=== PATIENT | male | born 1970 | race Caucasian/White ===

== ENCOUNTER 2017-03-31 12:48 | Emergency (ER) | payer SELFPAY ==
[2017-03-31 12:55] VITALS: BP 181/106
--- NOTE | 2017-03-31 13:52 | UC ---
Mónica Turcios Matthew, scribed for Shruthi Gallegos MD on 03/31/17 at 1316 . General HPI - HPI Summary HPI Summary: A 46 y/o male presents to with slurred speech and left sided facial droop since 20 minutes ago (12:20 per girlfriend, 12:28 per pt) that lasted for one minute and has since resolved. He first noticed the deficits when he was having difficulty focusing while on the phone with his girlfriend and began noticing that he was slurring his words. He then states that his face began to droop on the left side and he had left sided weakness in the arm and leg. Associated symptoms numbness of the left arm. He denies chest pain and SOB. He had a headache all morning, which resolved after taking 4 ibuprofen at 10:10 this morning. No FHx of CVA. Hx of GERD. He has no Hx of HTN. He states that he feels better currently. - History of Current Complaint Chief Complaint: UCGeneralIllness Stated Complaint: POSSIBLE STROKE Hx Obtained From: Patient Onset/Duration: Sudden Onset, Lasting Minutes - 1, Resolved Timing: Intermittent Episodes Lasting: - 1 minute x 1 episode Onset Severity: Moderate Current Severity: None Associated Signs & Symptoms: Positive: Headache - since resolved, Other - left sided facial droop, left sided arm and leg weakness - both since resolved; slurred speech - resolved; Numbness of the left arm - since resolved. Negative : Chest Pain, SOB - Allergy/Home Medications Allergies/Adverse Reactions: Allergies Allergy/AdvReac Type Severity Reaction Status Date / Time Sulfa Antibiotics Allergy Severe Anaphylatic Verified 03/31/17 12:54 Shock Home Medications: Home Medications Ibuprofen [Advil] 4 tab PO Q8HR PRN 03/31/17 [History Confirmed 03/31/17] Omeprazole [Prilosec] 1 tab PO DAILY 03/31/17 [History Confirmed 03/31/17] PMH/Surg Hx/FS Hx/Imm Hx Endocrine History Of: Denies: Diabetes Cardiovascular History Of: Denies: Hypertension GI/ History Of: Reports: Gastroesophageal Reflux Denies: Kidney Stones - Surgical History Surgical History: Yes Surgery Procedure, Year, and Place: Inguinal hernia right. Right knee scope - Family History Known Family History: Positive: Hypertension, Diabetes Family History: No FHx of CVA. - Social History Lives: With Family Alcohol Use: Weekly Alcohol Amount: 2-3 drinks per week- 2 drinks last night Substance Use Type: None Smoking Status (MU): Former Smoker Have You Smoked in the Last Year: No When Did the Patient Quit Smoking/Using Tobacco: 2012 Review of Systems Constitutional: Negative Skin: Negative Eyes: Negative ENT: Negative Respiratory: Negative Cardiovascular: Negative Gastrointestinal: Negative Genitourinary: Negative Motor: Negative Neurovascular: Negative Musculoskeletal: Negative Neurological: Headache - since resolved, Numbness - left arm and leg - since resolved, Other - left sided facial droop, left sided arm and leg weakness - both since resolved; slurred speech - resolved Psychological: Negative All Other Systems Reviewed And Are Negative: Yes Physical Exam Triage Information Reviewed: Yes Appearance: Well-Appearing, No Pain Distress, Obese Vital Signs: Initial Vital Signs Temp 98.5 F 03/31/17 12:50 Pulse 103 03/31/17 12:50 Resp 16 03/31/17 12:50 BP 181/106 03/31/17 12:50 Pulse Ox 96 03/31/17 12:50 elevated BP noted Vital Signs Reviewed: Yes Eyes: Positive: Conjunctiva Clear ENT: Positive: Normal ENT inspection Neck: Positive: Supple, Other: - no bruit Respiratory: Positive: Chest non-tender, Lungs clear, Normal breath sounds, No respiratory distress Cardiovascular: Positive: RRR, No Murmur, Pulses Normal, Brisk Capillary Refill Abdomen Description: Positive: Nontender, Soft Musculoskeletal: Positive: Strength Intact, ROM Intact Neurological Exam: Normal, Other - A&O x3 CN II-XII intact Motor function 5/5 Sensations intact Gait WNL Psychological Exam: Normal Psychological: Positive: Age Appropriate Behavior Skin Exam: Normal Diagnostics - EKG Cardiac Rate: NL - 86 bpm Cardiac Rhythm: Sinus: Normal - Normal AV IV conduction time; Left [place] Deviation -20; Q Wave in III and aVF ; No Acute Changes; No Previous EKG Course/Dx - Course Course Of Treatment: high blood pressure noted. Pt treated with highest priority upon stating his symptoms, code genao urgency. NIH stroke scale zero upon triage. Pt with HTN now. Will transfer to [facility] by ambulance for eval for TIA vs CVA vs complex migraine. - Differential Dx - Multi-Symptom Differential Diagnoses: CVA, Metabolic Abnormality, Other - TIA, complex migraine Provider Diagnoses: TIA - Physician Notifications Discussed Patient Care With: Ann Tan (ED PA) at 12:38 -- Notified of patient' s history and accepts transfer of the patient. Instructed by Provider To: MD Will See In ED Discharge - Discharge Plan Condition: Stable Disposition: TRANS HIGHER LVL OF CARE FAC Discharge Disposition Comment: The patient needs further evaluation in the ED. Referrals: No Primary Care Phys,NOPCP [Primary Care Provider] - NIH Scale - NIH Scale Level of Consciousness: Alert/Keenly Responsive Ask Patient the Month and His/Her Age: Both Correct Ask Pt to Open/Close Eyes and Logistics Planning Engineer/Release Non-Paretic Hand: Both Correctly Best Gaze (Only Horizontal Eye Movement): Normal Visual Field Testing: No Visual Loss Facial Paresis-Pt to Smile & Close Eyes or Grimace Symmetry: Normal/Symmetrical Motor Function - Right Arm: No Drift-Holds 10 Seconds Motor Function - Left Arm: No Drift-Holds 10 Seconds Motor Function - Right Leg: No Drift-Holds 10 Seconds Motor Function - Left Leg: No Drift-Holds 10 Seconds Limb Ataxia-Must be out of Proportion to Weakness Present: Absent Sensory (Use Pinprick to Test Arms/Legs/Trunk/Face): Normal Best Language (Describe Picture, Name Items): No Aphasia Dysarthria (Read Several Words): Normal Extinction and Inattention: No Abnormality Total Score: 0 The documentation as recorded by the Mónica sewell Matthew accurately reflects the service I personally performed and the decisions made by , Shruthi Gallegos MD.
== END 2017-03-31 13:15 | disposition short-term general hospital (02) ==
LOC: UCEAST 12:48
DX: G45.9 Transient cerebral ischemic attack, unspecified (principal); R53.1 Weakness; R51 Headache; K21.9 Gastro-esophageal reflux disease without esophagitis; E66.9 Obesity, unspecified; Z88.2 Allergy status to sulfonamides; Z87.891 Personal history of nicotine dependence
CPT/HCPCS: 93005; 99213; G0463

== ENCOUNTER 2017-03-31 13:29 | Observation (INO) | payer SELFPAY ==
[2017-03-31] MEDS ORDERED: NS 0.9% 1000 ML* 1,000 ML IV ONE (13:55)
[2017-03-31 14:08] LABS: Hematocrit 50 % (42-52); Hemoglobin 17.1 g/dl (14.0-18.0); Mean Corpuscular HGB Conc 34 g/dl (31-36); Mean Corpuscular Hemoglobin 31 pg (27-31); Mean Corpuscular Volume 90 fL (80-94); Mean Platelet Volume 9 um3 (7.4-10.4); Red Blood Count 5.58 10^6/ul (4.0-5.4); Red Cell Distribution Width 13 % (10.5-15); White Blood Count 8.9 10^3/ul (3.5-10.8)
[2017-03-31 14:21] LABS: Albumin 4.3 g/dL (3.2-5.2); BUN/Creatinine Ratio 20.7 (8-20); Calcium 9.7 mg/dL (8.6-10.3); EGFR African American 113.4 (>60); EGFR Non-African American 88.2 (>60); Globulin 2.7 g/dL (2-4); Potassium 3.7 mmol/L (3.5-5.0); Total Bilirubin 0.6 mg/dL (0.2-1.0)
[2017-03-31] MEDS ORDERED: Atorvastatin* 20 MG TAB PO ONE (14:31)
[2017-03-31] MEDS ORDERED: Aspirin TAB* 325 MG PO ONE (14:31)
[2017-03-31] MEDS ORDERED: Iodixanol* (CONTRAST) 320 MG/ML 100 ML SDV IV ONE (14:37)
--- NOTE | 2017-03-31 14:50 | RAD ---
Indication: Slurred speech, left-sided weakness. CT of the brain was performed without IV contrast. Ventricular structures are midline. No midline shift is noted. The extraction spaces are unremarkable. There is no evidence of intracranial mass or hemorrhage. No other high or low density lesions are identified. IMPRESSION: No intracranial mass or hemorrhage is noted. Findings discussed with Dr. Sauceda at 1446 hours.
--- NOTE | 2017-03-31 15:19 | RAD ---
INDICATION: Left-sided weakness with slurred speech with subsequent resolution of symptoms. COMPARISON: CT brain same date TECHNIQUE: Axial source images were acquired with coronal and sagittal reconstructions. CT angiographic technique was utilized with injection of 80 mL Visipaque 320. FINDINGS: Aortic arch: There are no CT angiogram abnormalities of the arch or the great vessels arising from the arch. Right carotid: The internal carotid artery, carotid bifurcation, extracranial portions of the internal carotid artery, carotid artery at the skull base, carotid siphon, and carotid termination appear normal. Left carotid:The internal carotid artery, carotid bifurcation, extracranial portions of the internal carotid artery, carotid artery at the skull base, carotid siphon, and carotid termination appear normal. Right middle and anterior cerebral arteries: There are no CT angiographic abnormalities of the middle or anterior cerebral arteries. Left middle and anterior cerebral arteries: There are no CT angiographic abnormalities of the middle or anterior cerebral arteries Right vertebral: The CT angiographic appearance of the vertebral artery is normal. Left vertebral: The CT angiographic appearance of the vertebral artery is normal. The left vertebral artery is dominant Basilar artery: The basilar artery and basilar tip appear normal. Posterior cerebral arteries: The distal distribution of the right and left posterior cerebral arteries is normal. [place]: The CT angiographic appearance of the [place] is normal. Source images show no evidence of mass or adenopathy within the neck. There are no focal parenchymal abnormalities or abnormal areas of enhancement. IMPRESSION: NO SPECIFIC CT ANGIOGRAPHIC ABNORMALITIES. CPT II Codes: 3100F [facility]
--- NOTE | 2017-03-31 15:21 | RAD ---
INDICATION: TIA COMPARISON: None TECHNIQUE: An AP portable view obtained at 1445 hours is submitted. FINDINGS: Bones/Soft Tissues: There are no acute bony findings. Cardiomediastinal: The cardiomediastinal silhouette is normal. Lungs: There are no infiltrates. Pleura: There are no pleural effusions. Other: None IMPRESSION: Normal chest.
[2017-03-31 15:35] LABS: HDL Cholesterol 46.4 mg/dL
[2017-03-31] MEDS ORDERED: Acetaminophen TAB* 325 MG PO PRN (15:49)
[2017-03-31] MEDS ORDERED: NS 0.9% 1000 ML* 1,000 ML IV SCH (16:00)
--- NOTE | 2017-03-31 17:39 | ED ---
Maximo Turcios Benjamin, scribed for Umer Sauceda MD on 03/31/17 at 1354 . Neurological HPI - HPI Summary HPI Summary: 46yo male c/o a possible TIA. Pt was on the phone with her , and suddenly noticed tingling and aphasia. Pt also reports left sided weakness. Per , time of onset was 1220, which lasted about 2-3 minutes. Pt states that he had a MEYER all throughout yesterday prior to todays episode. Pt also had about 7 episodes of diarrhea. Denies any visual changes. No Hx of CAD, HTN, DM, TIA/ CVA. Pt is left handed. - History of Current Complaint Chief Complaint: EDNeurologicalDeficit Stated Complaint: WEAKNESS Time Seen by Provider: 03/31/17 13:37 Hx Obtained From: Patient, Family/Counter Intelligence - Onset/Duration: Sudden Onset - 1220 today, Started minutes ago - 2-3 minutes, Resolved Onset Severity: Mild Current Severity: None Neurological Deficit Location: LUE, LLE Headache Location: Diffuse (Left) Pain Intensity: 0 Pain Scale Used: 0-10 Numeric Character: Numbness/Tingling, Motor Weakness - left sided, Impaired Speech - Allergy/Home Medications Allergies/Adverse Reactions: Allergies Allergy/AdvReac Type Severity Reaction Status Date / Time Sulfa Antibiotics Allergy Severe Anaphylatic Verified 03/31/17 12:54 Shock Home Medications: Home Medications Ibuprofen TAB* [Advil TAB*] 800 mg PO Q8H PRN 03/31/17 [History Confirmed ] Omeprazole CAP* [Prilosec CAP* 20 MG] 20 mg PO DAILY 03/31/17 [History Confirmed 03/31/17] PMH/Surg Hx/FS Hx/Imm Hx Endocrine/Hematology History: Reports: Other Endocrine/Hematological Disorders - NO HLD Denies: Hx Diabetes History: Denies: Hx Kidney Stones - Surgical History Surgery Procedure, Year, and Place: Inguinal hernia right. Right knee scope Infectious Disease History: No Infectious Disease History: Denies: Hx Clostridium Difficile, Hx Hepatitis, Hx Human Immunodeficiency Virus (HIV), Hx of Known/Suspected MRSA, Hx Shingles, Hx Tuberculosis, Hx Known/ Suspected VRE, Hx Known/Suspected VRSA, History Other Infectious Disease, Traveled Outside the [place] in Last 30 Days - Family History Known Family History: Positive: Hypertension, Diabetes Negative: Cardiac Disease, Renal Disease - Social History Alcohol Use: Occasionally Alcohol Amount: 2-3 drinks per week Substance Use Type: Reports: None Smoking Status (MU): Former Smoker Have You Smoked in the Last Year: No Review of Systems Constitutional: Negative Eyes: Negative ENT: Negative Cardiovascular: Negative Respiratory: Negative Gastrointestinal: Negative Genitourinary: Negative Musculoskeletal: Negative Skin: Negative Positive: Headache, Weakness - left sided , Numbness, Slurred Speech Psychological: Normal All Other Systems Reviewed And Are Negative: Yes Physical Exam - Summary Physical Exam Summary: The patient is obese in no acute distress and in no acute pain. The skin is warm and dry and skin color reflects adequate perfusion. HEENT: The head is normocephalic and atraumatic. The pupils are equal and reactive. The conjunctivae are clear and without drainage. Nares are patent and without drainage. Mouth reveals moist mucous membranes and the throat is without erythema and exudate. The external ears are intact. The ear canals are patent and without drainage. The tympanic membranes are intact. Neck is supple with full range of motion and non-tender. There are no carotid bruits. There is no neck vein distension. Respiratory: Chest is non-tender. Lungs are clear to auscultation and breath sounds are symmetrical and equal. Cardiovascular: Hear is regular rate and rhythm. There is no murmur or rub auscultated. There is no peripheral edema and pulses are symmetrical and equal. Abdomen: The abdomen is soft and non-tender. There are normal bowel sounds heard in all four quadrants and there is no organomegaly palpated. Musculoskeletal: There is no back pain noted. Extremities are non-tender with full range of motion. There is good capillary refill. There is no peripheral edema or calf tenderness elicited. Neurological: Patient is alert and oriented to person, place and time. The patient has symmetrical motor strength in all four extremities. Cranial nerves are grossly intact. Deep tendon reflexes are symmetrical and equal in all four extremities. No facial droop, No numbness. No drift in arms or legs, Heel-to- Mcclain test normal, Nmrcea-xt-Nect exam normal. No visual defects. Psychiatric: The patient has an appropriate affect and does not exhibit any anxiety or depression. Triage Information Reviewed: Yes Vital Signs On Initial Exam: Initial Vitals BP 139/95 03/31/17 13:36 Vital Signs Reviewed: Yes - Protem Coma Scale Coma Scale Total: 15 Diagnostics - Vital Signs Vital Signs Temp Pulse Resp BP Pulse Ox 03/31/17 13:38 98.9 F 88 20 139/95 95 03/31/17 13:37 21 03/31/17 13:36 139/95 - Laboratory Lab Results: Lab Results 03/31/17 03/31/17 03/31/17 Range/Units 13:00 13:00 13:00 WBC 8.9 (3.5-10.8) 10^3/ul RBC 5.58 H (4.0-5.4) 10^6/ul Hgb 17.1 (14.0-18.0) g/dl Hct 50 (42-52) % MCV 90 (80-94) fL MCH 31 (27-31) pg MCHC 34 (31-36) g/dl RDW 13 (10.5-15) % Plt Count 228 (150-450) 10^3/ul MPV 9 (7.4-10.4) um3 Neut % (Auto) 56.4 (38-83) % Lymph % (Auto) 33.1 (25-47) % [place] % (Auto) 7.9 (1-9) % Eos % (Auto) 1.9 (0-6) % Baso % (Auto) 0.7 (0-2) % Absolute Neuts (auto) 5.0 (1.5-7.7) 10^3/ul Absolute Lymphs (auto) 3.0 (1.0-4.8) 10^3/ul Absolute Monos (auto) 0.7 (0-0.8) 10^3/ul Absolute Eos (auto) 0.2 (0-0.6) 10^3/ul Absolute Basos (auto) 0.1 (0-0.2) 10^3/ul Absolute Nucleated RBC 0 10^3/ul Nucleated RBC % 0 INR (Anticoag Therapy) 0.93 (0.89-1.11) Sodium 135 (133-145) mmol/L Potassium 3.7 (3.5-5.0) mmol/L Chloride 103 (101-111) mmol/L Carbon Dioxide 24 (22-32) mmol/L Anion Gap 8 (2-11) mmol/L BUN 19 (6-24) mg/dL Creatinine 0.92 (0.67-1.17) mg/dL Est GFR ( Amer) 113.4 (>60) Est GFR (Non-Af Amer) 88.2 (>60) BUN/Creatinine Ratio 20.7 H (8-20) Glucose 136 H (70-100) mg/dL Lactic Acid (0.5-2.0) mmol/L Calcium 9.7 (8.6-10.3) mg/dL Total Bilirubin 0.60 (0.2-1.0) mg/dL AST 24 (13-39) U/L ALT 26 (7-52) U/L Alkaline Phosphatase 61 (34-104) U/L Troponin I 0.00 (<0.04) ng/mL Total Protein 7.0 (6.4-8.9) g/dL Albumin 4.3 (3.2-5.2) g/dL Globulin 2.7 (2-4) g/dL Albumin/Globulin Ratio 1.6 (1-3) Triglycerides 270 mg/dL Cholesterol 211 mg/dL LDL Cholesterol 111 mg/dL HDL Cholesterol 46.4 mg/dL 03/31/17 Range/Units 13:00 WBC (3.5-10.8) 10^3/ul RBC (4.0-5.4) 10^6/ul Hgb (14.0-18.0) g/dl Hct (42-52) % MCV (80-94) fL MCH (27-31) pg MCHC (31-36) g/dl RDW (10.5-15) % Plt Count (150-450) 10^3/ul MPV (7.4-10.4) um3 Neut % (Auto) (38-83) % Lymph % (Auto) (25-47) % [place] % (Auto) (1-9) % Eos % (Auto) (0-6) % Baso % (Auto) (0-2) % Absolute Neuts (auto) (1.5-7.7) 10^3/ul Absolute Lymphs (auto) (1.0-4.8) 10^3/ul Absolute Monos (auto) (0-0.8) 10^3/ul Absolute Eos (auto) (0-0.6) 10^3/ul Absolute Basos (auto) (0-0.2) 10^3/ul Absolute Nucleated RBC 10^3/ul Nucleated RBC % INR (Anticoag Therapy) (0.89-1.11) Sodium (133-145) mmol/L Potassium (3.5-5.0) mmol/L Chloride (101-111) mmol/L Carbon Dioxide (22-32) mmol/L Anion Gap (2-11) mmol/L BUN (6-24) mg/dL Creatinine (0.67-1.17) mg/dL Est GFR ( Amer) (>60) Est GFR (Non-Af Amer) (>60) BUN/Creatinine Ratio (8-20) Glucose (70-100) mg/dL Lactic Acid 1.2 (0.5-2.0) mmol/L Calcium (8.6-10.3) mg/dL Total Bilirubin (0.2-1.0) mg/dL AST (13-39) U/L ALT (7-52) U/L Alkaline Phosphatase (34-104) U/L Troponin I (<0.04) ng/mL Total Protein (6.4-8.9) g/dL Albumin (3.2-5.2) g/dL Globulin (2-4) g/dL Albumin/Globulin Ratio (1-3) Triglycerides mg/dL Cholesterol mg/dL LDL Cholesterol mg/dL HDL Cholesterol mg/dL Result Diagrams: 03/31/17 13:00 03/31/17 13:00 Lab Statement: Any lab studies that have been ordered have been reviewed, and results considered in the medical decision making process. - Radiology CXR Xray Interpretation: No Acute Changes Radiology Interpretation Completed By: Radiologist - CT CT Brain CT Interpretation: No Acute Changes CT Interpretation Completed By: Radiologist CTA Brain CT Interpretation: No Acute Changes CT Interpretation Completed By: Radiologist - EKG 1349. Cardiac Rate: NL - 66bpm EKG Rhythm: Sinus Rhythm EKG Interpretation: Left axis. Poor R wave progression. NIH Scale - NIH Scale Level of Consciousness: Alert/Keenly Responsive Ask Patient the Month and His/Her Age: Both Correct Ask Pt to Open/Close Eyes and Technical Asst/Release Non-Paretic Hand: Both Correctly Best Gaze (Only Horizontal Eye Movement): Normal Visual Field Testing: No Visual Loss Facial Paresis-Pt to Smile & Close Eyes or Grimace Symmetry: Normal/Symmetrical Motor Function - Right Arm: No Drift-Holds 10 Seconds Motor Function - Left Arm: No Drift-Holds 10 Seconds Motor Function - Right Leg: No Drift-Holds 10 Seconds Motor Function - Left Leg: No Drift-Holds 10 Seconds Limb Ataxia-Must be out of Proportion to Weakness Present: Absent Sensory (Use Pinprick to Test Arms/Legs/Trunk/Face): Normal Best Language (Describe Picture, Name Items): No Aphasia Dysarthria (Read Several Words): Normal Extinction and Inattention: No Abnormality Total Score: 0 Course/Dx - Differential Dx Differential Diagnoses Neuro: Positive: Cerebrovascular Accident, Hypovolemia, Migraine, Transient Ischemic Attack - Diagnoses Provider Diagnoses: TIA (transient ischemic attack) - Physician Notifications Discussed Care of Patient With: Dr. Douglas (Neurology) @1400. Dr. Carrillo ( Hospitalist) @7717. Discharge - Discharge Plan Condition: Stable Disposition: ADMITTED TO [facility] The documentation as recorded by the Maximo sewell Benjamin accurately reflects the service I personally performed and the decisions made by Sohail molina Drew, MD.
--- NOTE | 2017-03-31 20:43 | CONS ---
CONSULTATION NOTE: DATE OF CONSULT: 03/31/17 PATIENT OF: Dr. Sauceda. HISTORY OF PRESENT ILLNESS: History is from the patient and the patient's family. There is no report on the chart at this point. This 46-year-old left- handed man who while talking on the phone to his developed, according to the and him, difficulty speaking. He said "initially I think I am having a stroke and hesitant voice" and then his speech became garbled with nonsense words and hesitant. He was holding the phone in his left hand and it dropped and his daughter was home and he is able to open up the door and the daughter came and found him with significant weakness in the left arm and leg. This was at roughly 11:30. The symptoms lasted for about 8 minutes and then cleared completely. He has had no prior symptoms like this. No headache. Risk factors include a borderline elevated cholesterol in the past, but not treated. He also has obesity as well as a former history of smoking for about 25 years , but he quit 4 or 5 years ago. There is no family history for stroke. He has had no prior neurological problems. He has had no headache with this. No fever. PAST MEDICAL HISTORY: His only medical problem prior to this specifically was GERD. MEDICATIONS: He takes Prilosec 20 mg daily. He has not been on any aspirin. He takes Advil p.r.n. for aches and pains. ALLERGIES: He is allergic to SULFA antibiotics. FAMILY HISTORY: Negative for stroke. SOCIAL HISTORY: He is a former smoker. As mentioned, he does not drink or use drugs. 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 REVIEW OF SYSTEMS: Negative in all 14 spheres other than HPI, status post herniorrhaphy. PHYSICAL EXAM: On exam, temperature 98.9, pulse 88, respirations 20, and blood pressure 139/95. He is alert and oriented with normal speech and comprehension. Cranial nerves II through XII were intact and normal. Speech was normal with normal naming and repetition and good fluidity. Motor exam revealed normal tone, strength, coordination. [id number], no pronator drift. Fine motor was intact. Sensation intact to light touch. Reflexes are 2 and equal, downgoing toes. Neck was supple. Chest: Clear. Cardiovascular: Regular rate and rhythm. Abdomen: Soft with positive bowel sounds. DIAGNOSTIC STUDIES/LAB DATA: His CBC was normal. His INR was 0.93. He had a normal CMP other than a glucose of 136. IMPRESSION: I discussed with the family and Eryny that he by his history has had a transient ischemic attack involving aphasia and left-sided weakness in a left- handed man. His risk factors include his prior smoking, his being overweight, possibly elevated cholesterol. I discussed with him that we are obtaining a CT and CTA now, and if the CTA showed significant carotid disease, we man need to transfer him out for intervention for this. Otherwise, he will be coming into the hospital and have further workup including a cardiac echo, MRI scan and he will be started on aspirin and he would be given statins. If we do not find any specific etiology, he will either have a coagulable workup, as well as possibly a loop recorder because he would be having a stroke in a young man without specific etiology. Thank you for sharing his case. [id number]/[facility] #: [id number] SIDNEY
--- NOTE | 2017-03-31 21:08 | RAD ---
Indication: Stroke. Image sequences: Sagittal and axial T1, axial T2, FLAIR, diffusion, susceptibility weighted images of the brain were obtained. Ventricular structures are midline. No midline shift is noted. The extra-axial spaces are unremarkable. There is no evidence of intracranial mass or hemorrhage. No other high or low density lesions are identified. No restriction of diffusion is identified. The FLAIR images demonstrates no evidence of periventricular signal abnormalities. Susceptibility weighted images demonstrates no evidence of susceptibility artifact. No vasogenic edema is noted. The posterior fossa is otherwise unremarkable. The sella turcica, brainstem and posterior fossa are unremarkable. IMPRESSION: No intracranial mass or hemorrhage is noted. No restriction of diffusion is noted.
--- NOTE | 2017-03-31 21:33 | HP ---
HISTORY AND PHYSICAL: DATE OF ADMISSION: 03/31/17 PRIMARY CARE PROVIDER: None. CHIEF COMPLAINT: Transient slurred speech and left-sided weakness. HISTORY OF PRESENT ILLNESS: Mr. Nascimento is a 46-year-old male who is left hand dominant who presented to the hospital after he had an episode of 5 minutes of slurred speech and left-sided weakness. The patient stated that he was on the phone with his girlfriend when it developed. He stated he noted that his speech was slurred and his face "felt funny." When he attempted to get up, he felt that the left side of his body was "useless." It lasted approximately 5 minutes and resolved. In addition to the above mentioned, the patient stated that the whole night he had problems with nausea, vomiting, and diarrhea. He denies abdominal pain. He also stated that he has had headache that was going on all night and resolved prior to the episode of slurred speech. Currently, the patient is not emaciated anymore and his diarrhea seemed to have resolved. There is no history of sick contacts in the family. The patient is going to be admitted for overnight observation with the diagnosis of TIA. PAST MEDICAL HISTORY: 1. History of migraine headaches over 20 years ago. 2. History of status post right inguinal hernia repair. 3. History of arthroscopic surgery on the right knee in the past. MEDICATIONS: Include: 1. Omeprazole 20 mg daily. 2. Ibuprofen on a p.r.n. basis. ALLERGIES: SULFA medications cause hives. FAMILY HISTORY: Positive for father who had history of throat CA and mother with history of breast cancer. Both of the parents are . SOCIAL HISTORY: The patient quit smoking 4 years ago and he has history of 45- pack- year smoking. He drinks alcohol occasionally. Denies any drug use. 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 He lives with his significant other , Ya Jarrett. Ya is a nurse and she is his surrogate. REVIEW OF SYSTEMS: Please see history of present illness. In addition to above mentioned, the patient stated that he had been in his usual state of health until last night when he developed nausea and vomiting and diarrhea. It lasted all day and was associated with headache that was severe. At some point , the patient stated that he was not really sure if his vomiting is from the headache or the nausea causes the headache. When evaluated in the emergency department, right now he denies any nausea or vomiting currently and headaches had resolved. All of the remaining 14 systems were reviewed with the patient and were otherwise negative. PHYSICAL EXAMINATION GENERAL: The patient is a pleasant 44-year-old male, who is in no acute distress. The patient is alert, awake, and oriented x3. VITAL SIGNS: Blood pressure 138/89, heart rate of 80 and regular, respiratory rate 20, oxygen saturation is 96% on room air, and temperature of 98.9. HEENT: Head: Atraumatic, normocephalic. Eyes: Pupils are equal and reactive to light and accommodation. Oropharynx is clear. Mucosa moist. NECK: Supple, no JVD, no bruits bilaterally. RESPIRATORY: Clear to auscultation bilaterally. CARDIOVASCULAR: Regular rate and rhythm, no murmur. ABDOMEN: Soft and nontender. Bowel sounds present in all 4 quadrants. EXTREMITIES: There is no edema. Pulses 2+ bilaterally. No clubbing or cyanosis. NEUROLOGIC: Cranial nerves II through XII are grossly intact. Motor strength is 5/5 bilaterally. Sensation is intact throughout. [id number] is not dysmetric bilaterally. Gait is not impaired. PSYCHIATRIC: The patient is oriented x3 with no evidence of anxiety or depression. Please note that the patient is left hand dominant. LABORATORY/DIAGNOSTIC DATA: Laboratory data showed white blood cell count of 8.9, hemoglobin of 17.1, hematocrit of 50, platelets of 228. Sodium 135, potassium of 3.7, chloride 102, carbon dioxide 24, BUN 19, creatinine 0.82. Liver function tests were unremarkable. Glucose of 136. The patient's triglycerides were 270, cholesterol total of 211, LDL of 111, HDL of 46. CT angiogram of the head and neck showed no specific CT abnormalities. Brain CT, impression: "No intracranial mass or hemorrhage is noted." Portable chest x-ray showed "normal chest." The patient's EKG reviewed by myself showed normal sinus rhythm with the heart rate of 66 beats per minute with normal axis. No significant ST changes. One negative ST in lead III. ASSESSMENT AND PLAN: A 46-year-old male with history of obesity who presents with symptoms of transient ischemic attack. The patient's CTA so far is unremarkable and further workup is unremarkable. An MRA of the brain is going to be obtained. The patient is going to placed on observation on telemetry monitored bed with neuro checks every 2 hours. At this point, the patient is neurologically back to normal and he will not require physical therapy or occupational therapy. He had no problems with bedside swallowing when I evaluated the patient. He is going to be placed on full aspirin on daily basis. Dr. Douglas saw the patient in consultation and recommended apart from the MRI as mentioned above, transthoracic echocardiogram with bubble study as well as hypercoagulable workup which is going to be obtained. Dr. Douglas also recommended a discharge for the patient to have a loop recorder arranged with Cardiology if the remaining workup is negative. For the patient's history of gastroesophageal reflex disease, omeprazole is going to be continued. For DVT prophylaxis, the patient and that is going to be continued. He is also low risk. Code status is full. TIME SPENT: Approximately 63 minutes was spent on admission of this patient, more than half the time was spent [id number] with the patient during the interview and physical exam. CC: Dr. Douglas* [id number]/[facility] #: [id number] [facility]
[2017-04-01 05:49] LABS: Hematocrit 46 % (42-52); Hemoglobin 15.7 g/dl (14.0-18.0); Mean Corpuscular HGB Conc 34 g/dl (31-36); Mean Corpuscular Hemoglobin 31 pg (27-31); Mean Corpuscular Volume 91 fL (80-94); Mean Platelet Volume 9 um3 (7.4-10.4); Red Cell Distribution Width 13 % (10.5-15); White Blood Count 7.6 10^3/ul (3.5-10.8)
[2017-04-01 05:59] LABS: BUN/Creatinine Ratio 17.6 (8-20); Calcium 8.9 mg/dL (8.6-10.3); EGFR African American 114.8 (>60); EGFR Non-African American 89.3 (>60); Potassium 4.1 mmol/L (3.5-5.0)
[2017-04-01] MEDS ORDERED: Omeprazole CAP* 20 MG PO SCH (06:00)
[2017-04-01] MEDS ORDERED: Perflutren Lipid Microsphere* 3 ML VIAL ONE (07:43)
--- NOTE | 2017-04-01 07:52 | PN ---
Subjective Date of Service: 04/01/17 Interval History: Patient seen this morning. No recurrence of symptoms. Feels well. No headache, fever, chills. Family History: Unchanged from Admission Social History: Unchanged from Admission Past Medical History: Unchanged from Admission Objective Active Medications: Acetaminophen (Tylenol Tab*) 650 mg PO Q4H PRN Aspirin (Aspirin Tab*) 325 mg PO DAILY [facility] Sodium Chloride (Ns 0.9% 1000 Ml*) 1,000 mls @ 125 mls/hr IV PER RATE [facility] Omeprazole (Prilosec Cap*) 20 mg PO DAILY@0600 [facility] Vital Signs 03/31/17 03/31/17 03/31/17 15:30 16:00 16:30 Temperature Pulse Rate 73 71 68 Respiratory 13 18 Rate Blood Pressure 158/106 132/74 115/84 (mmHg) O2 Sat by Pulse 97 97 95 Oximetry 03/31/17 03/31/17 03/31/17 18:27 19:49 23:58 Temperature 97.8 F 98.4 F 98.4 F Pulse Rate 69 71 63 Respiratory 18 18 16 Rate Blood Pressure 137/79 117/77 126/80 (mmHg) O2 Sat by Pulse 98 97 97 Oximetry 04/01/17 04/01/17 04:22 07:11 Temperature 97.8 F 98.6 F Pulse Rate 56 56 Respiratory 16 16 Rate Blood Pressure 116/74 118/71 (mmHg) O2 Sat by Pulse 96 97 Oximetry Oxygen Devices in Use Now: None Appearance: Middle-aged, M, laying in bed in NAD Eyes: No Scleral Icterus Ears/Nose/Mouth/Throat: Mucous Membranes Moist Neck: NL Appearance and Movements; NL JVP Respiratory: Symmetrical Chest Expansion and Respiratory Effort, Clear to Auscultation Cardiovascular: NL Sounds; No Murmurs; No JVD, RRR Abdominal: NL Sounds; No Tenderness; No Distention Lymphatic: No Cervical Adenopathy Extremities: No Edema Skin: No Rash or Ulcers Neurological: Alert and Oriented x 3, NL Sensation, NL Muscle Strength and Tone Result Diagrams: 04/01/17 05:19 04/01/17 05:19 Additional Lab and Data: Lab Results 03/31/17 03/31/17 03/31/17 Range/Units 13:00 13:00 13:00 WBC 8.9 (3.5-10.8) 10^3/ul RBC 5.58 H (4.0-5.4) 10^6/ul Hgb 17.1 (14.0-18.0) g/dl Hct 50 (42-52) % MCV 90 (80-94) fL MCH 31 (27-31) pg MCHC 34 (31-36) g/dl RDW 13 (10.5-15) % Plt Count 228 (150-450) 10^3/ul MPV 9 (7.4-10.4) um3 Neut % (Auto) 56.4 (38-83) % Lymph % (Auto) 33.1 (25-47) % Johnston % (Auto) 7.9 (1-9) % Eos % (Auto) 1.9 (0-6) % Baso % (Auto) 0.7 (0-2) % Absolute Neuts (auto) 5.0 (1.5-7.7) 10^3/ul Absolute Lymphs (auto) 3.0 (1.0-4.8) 10^3/ul Absolute Monos (auto) 0.7 (0-0.8) 10^3/ul Absolute Eos (auto) 0.2 (0-0.6) 10^3/ul Absolute Basos (auto) 0.1 (0-0.2) 10^3/ul Absolute Nucleated RBC 0 10^3/ul Nucleated RBC % 0 INR (Anticoag Therapy) 0.93 (0.89-1.11) Sodium 135 (133-145) mmol/L Potassium 3.7 (3.5-5.0) mmol/L Chloride 103 (101-111) mmol/L Carbon Dioxide 24 (22-32) mmol/L Anion Gap 8 (2-11) mmol/L BUN 19 (6-24) mg/dL Creatinine 0.92 (0.67-1.17) mg/dL Est GFR ( Amer) 113.4 (>60) Est GFR (Non-Af Amer) 88.2 (>60) BUN/Creatinine Ratio 20.7 H (8-20) Glucose 136 H (70-100) mg/dL Lactic Acid (0.5-2.0) mmol/L Calcium 9.7 (8.6-10.3) mg/dL Total Bilirubin 0.60 (0.2-1.0) mg/dL AST 24 (13-39) U/L ALT 26 (7-52) U/L Alkaline Phosphatase 61 (34-104) U/L Troponin I 0.00 (<0.04) ng/mL Total Protein 7.0 (6.4-8.9) g/dL Albumin 4.3 (3.2-5.2) g/dL Globulin 2.7 (2-4) g/dL Albumin/Globulin Ratio 1.6 (1-3) Triglycerides 270 mg/dL Cholesterol 211 mg/dL LDL Cholesterol 111 mg/dL HDL Cholesterol 46.4 mg/dL 03/31/17 Range/Units 13:00 WBC (3.5-10.8) 10^3/ul RBC (4.0-5.4) 10^6/ul Hgb (14.0-18.0) g/dl Hct (42-52) % MCV (80-94) fL MCH (27-31) pg MCHC (31-36) g/dl RDW (10.5-15) % Plt Count (150-450) 10^3/ul MPV (7.4-10.4) um3 Neut % (Auto) (38-83) % Lymph % (Auto) (25-47) % Johnston % (Auto) (1-9) % Eos % (Auto) (0-6) % Baso % (Auto) (0-2) % Absolute Neuts (auto) (1.5-7.7) 10^3/ul Absolute Lymphs (auto) (1.0-4.8) 10^3/ul Absolute Monos (auto) (0-0.8) 10^3/ul Absolute Eos (auto) (0-0.6) 10^3/ul Absolute Basos (auto) (0-0.2) 10^3/ul Absolute Nucleated RBC 10^3/ul Nucleated RBC % INR (Anticoag Therapy) (0.89-1.11) Sodium (133-145) mmol/L Potassium (3.5-5.0) mmol/L Chloride (101-111) mmol/L Carbon Dioxide (22-32) mmol/L Anion Gap (2-11) mmol/L BUN (6-24) mg/dL Creatinine (0.67-1.17) mg/dL Est GFR ( Amer) (>60) Est GFR (Non-Af Amer) (>60) BUN/Creatinine Ratio (8-20) Glucose (70-100) mg/dL Lactic Acid 1.2 (0.5-2.0) mmol/L Calcium (8.6-10.3) mg/dL Total Bilirubin (0.2-1.0) mg/dL AST (13-39) U/L ALT (7-52) U/L Alkaline Phosphatase (34-104) U/L Troponin I (<0.04) ng/mL Total Protein (6.4-8.9) g/dL Albumin (3.2-5.2) g/dL Globulin (2-4) g/dL Albumin/Globulin Ratio (1-3) Triglycerides mg/dL Cholesterol mg/dL LDL Cholesterol mg/dL HDL Cholesterol mg/dL Assess/Plan/Problems-Billing Assessment: TIA in a 46 yo M with hx of obesity, GERD - Patient Problems (1) TIA (transient ischemic attack) Current Visit: Yes Comment: Appreciate Neuro assistance. CT, CTA H/N, MRI unremarkable. Echo with bubble study pending. Hypercoag work-up in process. Tele with some bradycardia, no AFib. Continue ASA, will start atorvastatin 40 mg daily. Check HbA1c. If work-up negative will arrange for outpatient loop recorder. (2) GERD (gastroesophageal reflux disease) Current Visit: Yes Comment: Continue PPI (3) DVT prophylaxis Current Visit: Yes Comment: Lovenox
[2017-04-01 08:51] LABS: Urine Bilirubin Negative (Negative); Urine Glucose Negative (Negative); Urine Nitrite Negative (Negative)
[2017-04-01] MEDS ORDERED: Aspirin TAB* 325 MG PO SCH (09:00)
[2017-04-01] MEDS ORDERED: Enoxaparin(*) 40 MG/0.4 ML SYR SUBCUT SCH (10:00)
--- NOTE | 2017-04-01 10:22 | ECHO ---
Patient: BOLA DUNLAP [facility] Rec#: [id number] : 1970 Date: 04/01/2017 Age: 46y Height: 167.64 cm / 66.0 in Weight: 108.86 kg / 239.9 lbs Sex: M BSA: 2.16 Room#: 440 Admit Date#: 03/31/2017 Type: Inpatient Referring: Neema Carrillo MD Reading: Yung Joyner MD Cso: Inez StevensRD,RDMS Transthoracic Echocardiogram Indication: TIA BP: 116/74 HR: 55 Rhythm: NSR Indications Transient Cerebral Ischemia Findings History: GERD, former smoker, former ETOH Technical Comments: The study is technically limited due to poor acoustic windows. Completed 0850 Left Ventricle: The left ventricular chamber size is normal. There is no left ventricular hypertrophy. Basal interventricular septum shows moderate thickening. Left ventricular systolic function is at the lower limits of normal. No focal wall motion abnormalities The estimated ejection fraction is 50-55%. Normal left ventricular diastolic filling is observed. Left Atrium: The left atrial chamber size is normal. Right Ventricle: The right ventricular chamber size and systolic function are within normal limits. Right Atrium: The right atrial cavity size is normal. A patent foramen ovale is demonstrated by agitated contrast. Aortic Valve: The aortic valve is trileaflet. Systolic excursion of the aortic valve is normal. There is no evidence of aortic regurgitation. There is no evidence of aortic stenosis. Mitral Valve: The mitral valve leaflets appear normal. There is no evidence of mitral regurgitation. There is no evidence of mitral stenosis. Tricuspid Valve: The tricuspid valve leaflets are normal. There is a physiologic tricuspid regurgitation. Unable to estimate the right ventricular systolic pressure. Pulmonic Valve: The pulmonic valve structure is not well visualized. There is a trace pulmonic regurgitation. Pericardium: There is no significant pericardial effusion. Aorta: The aortic root appears normal. There is no dilatation of the aortic arch. Pulmonary Artery: The main pulmonary artery is not well visualized. Venous: The inferior vena cava appears normal in size. There is an approximate 50% respiratory change in the inferior vena cava dimension. Contrast: Definity was used to optimize study. A total of 6 ml was used. Intravenous agitated saline contrast was used to assess intracardiac shunting. Summary: There was not any prior study for comparison. Conclusions Left ventricular systolic function is at the lower limits of normal. No focal wall motion abnormalities The estimated ejection fraction is 50-55%. Basal interventricular septum shows moderate thickening. A patent foramen ovale is demonstrated by agitated contrast. Systolic excursion of the aortic valve is normal. There is no evidence of aortic regurgitation. There is no evidence of mitral regurgitation. There is a physiologic tricuspid regurgitation. Unable to estimate the right ventricular systolic pressure. There is no significant pericardial effusion. Measurements Name Value Normal Range Ao root diameter (MM) 1.96 cm - LA dimension (AP) MM 4.08 cm - LA:Ao ratio (MM) 2.08 ratio - Name Value Normal Range RVIDd (AP) 2D 3.8 cm (0.9 - 2.6) RAd ISD 4CH 4.4 cm (3.4 - 4.9) RA (A4C)W 3.1 cm (2.9 - 4.6) IVSd (2D) 1.7 cm (0.6 - 1) LVPWd (2D) 1.3 cm (0.6 - 1) LVIDd (2D) 4.7 cm (3.6 - 5.4) LVIDs (2D) 3.2 cm - LV FS (2D) 32 % (25 - 45) Aortic Annulus 2.3 cm (1.4 - 2.6) Ao root diameter (2D) 3.1 cm (2.1 - 3.5) Ascending Ao 3.2 cm (2.1 - 3.4) Aortic arch 3 cm (1.8 - 3.4) LA dimension (AP) 2D 4.3 cm (2.3 - 3.8) LAd ISD 4CH 5 cm (2.9 - 5.3) LA ISD 4CH W 4.5 cm (2.5 - 4.5) Name Value Normal Range LA ESV SP 4CH (A/L) 58.81 ml - LA ESV SP 2CH (A/L) 44.54 ml - LA ESV BP (A/L) 53.08 ml - LA ESV BP (A/L) index 25 ml/m2 - LA ESV SP 4CH (MOD) 51.45 ml - LA ESV SP 2CH (MOD) 42.53 ml - Name Value Normal Range MV E-wave Vmax 0.8 m/sec - MV deceleration time 195 msec - MV A-wave Vmax 0.5 m/sec - MV E:A ratio 1.6 ratio - LV septal e' Vmax 0.07 m/sec - LV lateral e' Vmax 0.09 m/sec - LV E:e' septal ratio 11.4 ratio - LV E:e' lateral ratio 9 ratio - Name Value Normal Range AV Vmax 1 m/sec - AV VTI 17.2 cm - AV peak gradient 4 mmHg - AV mean gradient 1.8 mmHg - LVOT Vmax 0.9 m/sec - LVOT VTI 16.5 cm - LVOT peak gradient 3.2 mmHg - LVOT mean gradient 1.7 mmHg - CHARLY Vmax 1.2 m/sec - Name Value Normal Range RAP 8 mmHg - IVC diameter 2.1 cm - Name Value Normal Range PV Vmax 0.7 m/sec - PV peak gradient 2 mmHg -
[2017-04-01 11:22] VITALS: BP 120/70
--- NOTE | 2017-04-01 13:30 | RAD ---
INDICATION: Pain and swelling. COMPARISON: None TECHNIQUE: Duplex interrogation of the Lowerextremity was performed. FINDINGS: Deep veins: The common femoral, great saphenous, profunda femoris, proximal, mid, and distal deep femoral, popliteal, posterior tibial, and peroneal veins are patent. There is normal compressibility, augmentation, and phasic flow. Superficial veins: There are no findings of superficial thrombophlebitis. Popliteal fossa: There is a 7.3 x 1.8 x 3.7 cm popliteal cyst in. Soft tissues:There are no soft tissue abnormalities. IMPRESSION: Popliteal cyst. No evidence of deep venous thrombosis
[2017-04-01] MEDS ORDERED: Atorvastatin* 40 MG TAB PO SCH (17:00)
--- NOTE | 2017-04-01 23:52 | PN ---
NEUROLOGICAL FOLLOWUP NOTE: DATE OF VISIT: 04/01/2017. PATIENT OF: Dr. Yanez. HISTORY: This is a 46-year-old man status post a TIA yesterday. He has had no headache, numbness, weakness, visual symptoms, no speech problems. The walking has been normal. He has been started on aspirin and Lipitor, aspirin 325 mg daily, Lipitor 40 mg daily. He remains on Prilosec 20 mg daily. REVIEW OF SYSTEMS: Negative in all 14 systems spheres. PHYSICAL EXAMINATION: Temperature 98.1, pulse 67, respirations 16, blood pressure 120/70. He is alert and oriented with normal speech and comprehension. Cranial nerves II through XII were intact. Motor exam revealed normal tone, strength and coordination. Sensation intact to light touch. Reflexes were 2 and equal, downgoing to the toes. Chest: Clear. Cardiovascular: Regular rate and rhythm. Abdomen: Soft. Positive bowel sounds. LABORATORY DATA/DIAGNOSTIC STUDIES: His hypercoagulable workup is pending. His LDL is 111. He has had normal BMP. He had normal CBC today. His CTA of his head and neck was normal. He had a normal MRI scan with transthoracic echo. His transthoracic echo showed bubbles with Valsalva. I spoke with Dr. Joyner. This is consistent with a very small PFO, probably not a large one per Dr. Joyner. His venous ultrasound is pending. ASSESSMENT AND PLAN: Mr. Nascimento has had a TIA in his right MCA distribution by clinical history and his tests today other than his elevated LDL are negative. His echo is probably not significant given the size and the frequency of small PFOs. If his venous Doppler is negative, no further workup needs to be done for that. Discussed with Dr. Yanez that he needs a loop recorder placed to rule out atrial fibrillation that might warrant anticoagulation and he is going to be referred to Cardiology for that. I will be seeing him back in 2 or 3 weeks and followup on his hypercoagulable workup. These issues have all been discussed with the patient. He will also need a followup LDL as an outpatient to make sure his LDL is below 70. Thank you for sharing his case. [id number]/[facility] #: [id number] [facility]
--- NOTE | 2017-04-02 05:35 | DS ---
DISCHARGE SUMMARY: DATE OF ADMISSION: 03/31/17 DATE OF DISCHARGE: 04/01/17 PRIMARY CARE PHYSICIAN: Dr. Manrique. PRINCIPAL DISCHARGE DIAGNOSIS: Transient ischemic attack. SECONDARY DIAGNOSES: 1. History of migraines. 2. Obesity. 3. Gastroesophageal reflux disease. 4. Former tobacco abuse. DISCHARGE MEDICATION REGIMEN: 1. Aspirin 325 mg by mouth daily. 2. Atorvastatin 40 mg by mouth nightly. 3. Advil 800 mg by mouth every 8 hours as needed for pain. 4. Omeprazole 20 mg by mouth daily. STUDIES DURING HOSPITALIZATION: CT of the brain without contrast, impression: No intracranial mass or hemorrhage is noted. Chest x-ray, impression: Normal chest x-ray. CT of the head and neck, impression: No specific CT angiographic abnormalities. MRI of the brain without contrast, impression: No intracranial mass or hemorrhages noted. No restriction or diffusion is noted. Transthoracic echocardiogram, conclusion: Left ventricular systolic function is at the lower limits of normal. No focal wall motion abnormalities. The estimated ejection fraction is 50% to 55%. Basal interventricular septum shows moderate thickening, patent foramen ovale is demonstrated by agitated saline contrast. Systolic excursion of the aortic valve is normal. There is no evidence of aortic regurgitation. There is no evidence of mitral regurgitation. There is physiologic tricuspid regurgitation, unable to estimate the right ventricular systolic pressure. No significant pericardial effusion. Bilateral lower extremity Dopplers, impression: Popliteal cyst. No evidence of deep venous thrombosis. CONSULTANTS DURING HOSPITALIZATION: Dr. Chriss Douglas, Neurology. HPI AND HOSPITAL SUMMARY: Please see the full history and physical by Dr. Neema Carrillo for full details. Briefly, Mr. Nascimetno is a 46-year-old male with a past medical history as above, who presented to the hospital after about 5 minutes of slurred speech and left-sided weakness and numbness. The patient' s symptoms were concerning for possible TIA. He was evaluated by Neurology. Imaging was largely negative. The patient did have a PFO on echo, which prompted a lower extremity Doppler, which was also negative. He was started on aspirin and atorvastatin with an LDL of 111. The patient had no arrhythmias noted on telemetry. Dr. Douglas recommended a hypercoagulable workup, which was ordered and the results are pending at this time. Also recommended an outpatient Cardiology referral for implantable loop recorder. The patient was provided with Dr. Joyner's office number to schedule an appointment for this. He will also follow up with Dr. Manrique as an outpatient. Outstanding labs, prothrombin gene mutation, protein C, activated protein S, activated lupus anticoagulant, homocysteine, factor V Leiden mutation, cardiolipin IgG and IgM, phospholipid IgM, antithrombin III, activated protein C resistance. TIME SPENT: Total time spent on this discharge was 40 minutes. This is a summary of the hospitalization, please see the full medical record for further details. CC: Dr. Manrique; Dr. Joyner* [id number]/[facility] #: [id number] [facility]
[2017-04-03 12:04] LABS: LAC APTT 31 sec (26 - 36); Lac DRVVT Screen Ratio 0.8 ratio (0.0 - 1.1); Prothrombin Time(LAC) 11.2 sec
[2017-04-03 14:00] LABS: Protein C Activity 101 % (70 - 150)
[2017-04-03 15:12] LABS: Phospholipid Ab IgG < 9.4 GPL; Phospholipid Ab IgM, S 14.3 MPL
[2017-04-03 15:33] LABS: Factor V Leiden Mutation Negative (Negative); Prothrombin 20210 Mutation Negative (Negative)
== END 2017-04-01 15:10 | disposition home or self-care (01) ==
LOC: ED 13:29 → MEDTELE 15:22
PROVIDERS: ADMIT Internal Medicine; ATTEND Hospitalist
DX: G45.9 Transient cerebral ischemic attack, unspecified (principal); G43.909 Migraine, unspecified, not intractable, without status migrainosus; E66.9 Obesity, unspecified; K21.9 Gastro-esophageal reflux disease without esophagitis; Z87.891 Personal history of nicotine dependence; Z79.82 Long term (current) use of aspirin; Z79.899 Other long term (current) drug therapy; Z88.2 Allergy status to sulfonamides; M79.605 Pain in left leg; M79.604 Pain in right leg; M71.20 Synovial cyst of popliteal space [Baker], unspecified knee
CPT/HCPCS: 36415; 70450; 70496; 70498; 70551; 71010; 80048; 80053; 80061; 81003; 81240; 81241; 83036; 83090; 83605; 84484; 85025; 85300; 85303; 85306; 85307; 85610; 85613; 85730; 86147; 93005; 93306; 93970; 96360; 96361; 96372; 99284; A9270-GY; C8929; G0378; J1650; Q9967